=== PATIENT | female | born 1935 | race Caucasian/White ===

== ENCOUNTER → 2017-05-09 | Outpatient (CLI) | payer OTHER, MEDICARE | LOC: CIMAGING 10:12 | PROVIDERS: ATTEND Family Medicine | DX: M51.34 Other intervertebral disc degeneration, thoracic region (principal) | CPT/HCPCS: 72072-PO; 80053-PO; 84550-PO ==

== ENCOUNTER → 2018-06-03 | Outpatient (CLI) | payer OTHER, MEDICARE | LOC: BMCIMAGING 10:55 | PROVIDERS: ATTEND Internal Medicine Rheumatology | DX: M81.0 Age-related osteoporosis without current pathological fracture (principal) ==

== ENCOUNTER → 2018-07-12 | Outpatient (CLI) | payer OTHER, MEDICARE | LOC: BMCIMAGING 10:01 | PROVIDERS: ATTEND Orthopaedic Surgery | DX: M16.0 Bilateral primary osteoarthritis of hip (principal); N20.0 Calculus of kidney ==